=== PATIENT | female | born 1940 | race Caucasian/White ===

== ENCOUNTER → 2018-07-19 10:15 | Outpatient (CLI) | payer MEDICARE, SELFPAY ==
[2018-01-30 13:29] VITALS: BMI 32.4
--- NOTE | 2018-07-19 10:20 | BI_ITS ---
MAMMOGRAPHY - BILATERAL SCREENING REASON FOR EXAM: Female, 78 years old. Routine annual screening examination. PERTINENT HISTORY: Personal history of breast cancer. Prior left lumpectomy with radiation and chemotherapy. Prior left stereotactic breast biopsy. Grandmother with breast cancer. TECHNIQUE: Digital bilateral breast annel (3D mammographic acquisition) in the CC and MLO projections. 2-D mediolateral oblique (MLO) and craniocaudad (CC) views of both breasts were obtained. CAD: Full Field Digital Mammography with Computer Added Detection was performed. COMPARISON: Comparison is made with prior study dated July 18, 2017 and July 16, 2016. FINDINGS: Breast Composition: The breasts are almost entirely fatty. There are no dominant masses or suspicious calcifications. Stable postoperative changes in the deep slightly lateral aspect a tissue clip marker is once again seen in the superior retroareolar region of the left breast. No other significant abnormalities are identified. There has been no significant change since the prior study. BI/SCREENING MAMM (CAD), BILAT IMPRESSION: Stable bilateral screening mammogram. Yearly follow-up mammogram recommended. (A) ASSESSMENT CATEGORY: BIRADS Category 2: Benign. A letter regarding these results will be sent to the patient by the facility within 30 days. Approximately 10% of breast cancers are not detected by mammography. A normal mammogram should not delay biopsy of a clinically suspicious abnormality. [id number] Electronically Signed: Rosendo Meeks MD at 12:07 EST Tel [phone], Service support ,
--- NOTE | 2018-07-19 10:40 | BD_ITS ---
STUDY: DUAL ENERGY X-RAY ABSORPTIOMETRY / DXA REASON FOR EXAM: Female, 78 years old. The patient is postmenopausal. Loss of height. History of breast cancer. TECHNIQUE: Bone Mineral Density (BMD) measurements of lumbar spine and left forearm were obtained. The patient is status post bilateral total hip replacement. COMPARISON: Comparison is made with prior study dated December 23, 2015. FINDINGS: Lumbar Spine (L1-L4): g/cm2 (1.299) / T-score (1.0) / Z-score (2.8) Findings are suggestive of normal bone density with a low fracture risk. Left Forearm: g/cm2 (0.815) / T-score (-0.8) / Z-score (1.6) The T-Scores on the most recent prior examination were: Lumbar Spine (L1-L4): There has been no change of bone density since the previous examination. BD/Dexa Bone Density Study IMPRESSION: The patient is considered normal as outlined below according to World Jourdan Organization (WHO) criteria with a low fracture risk. There has been no change of bone density since the previous examination. Reference Information: The T-score is the number of standard deviations above or below the standard which is normal for young adults at their peak bone mineral density. The World Health Organization (WHO) interprets the T-scores as follows: Above -1 Normal bone density Between -1 and -2.5 Osteopenia Equal to / or below -2.5 Osteoporosis As a practical clinical guideline, osteopenia may be graded as follows: Mild -1 through -1.5 Moderate -1.6 through -2.0 Severe -2.1 through -2.4 The Z-score is the number of standard deviations above or below age-matched controls. A Z-score of less than -1.5 would be considered abnormal. References: 1. NIH Osteoporosis and Related Bone Diseases http://www.osteo.org 2. International Society for Clinical Densitometry http://www.iscd.org 3. National Osteoporosis Foundation http://www.nof.org Electronically Signed: Rosendo Meeks MD at 14:35 EST Tel [phone], Service support ,
--- OUTSIDE RECORDS SUMMARY | 2018-09-04 11:59 | XMS RPT_ITS ---
:1940 Author Organization OHIP Support Name Relationship Address Phone FREYA HENDERSON Unavailable [address] + [place] [address] R Unavailable Unavailable Unavailable SAEID SALAS Unavailable [address] + [place] [address] NORTH, FREYA Unavailable [address] + [place] [address] R Unavailable Unavailable Unavailable SAEID SALAS Unavailable [address] + [place] [address] NORTH, FREYA Unavailable [address] + [place] [address] R Unavailable Unavailable Unavailable SAEID SALAS Unavailable [address] + [place] [address] NORTH, FREYA Unavailable [address] + [place] [address] R Unavailable Unavailable Unavailable SAEID SALAS Unavailable [address] + [place] [address] NORTH, FREYA Unavailable [address] + [place] [address] R Unavailable Unavailable Unavailable SAEID SALAS Unavailable [address] + [place] [address] NORTH, FREYA Unavailable [address] + [place] [address] R Unavailable Unavailable Unavailable SAEID SALAS Unavailable [address] + [place] [address] NORTH, FREYA Unavailable [address] + [place] [address] R Unavailable Unavailable Unavailable SAEID SALAS Unavailable [address] + [place] [address] SAEID SALAS Unavailable [address] + [place] [address] SAEID SALAS Unavailable [address] + [place] [address] NORTH, FREYA Unavailable [address] + [place] [address] R Unavailable Unavailable Unavailable SAEID SALAS Unavailable [address] + [place] [address] NORTH, FREYA Unavailable [address] + [place] [address] R Unavailable Unavailable Unavailable SAEID SALAS Unavailable [address] + [place] [address] SAEID SALAS Unavailable [address] + [place] [address] SAEID SALAS Unavailable [address] + [place] [address] NORTH, FREYA Unavailable [address] + [place] [address] R Unavailable Unavailable Unavailable SAEID SALAS Unavailable [address] + [place] [address] NORTH, FREYA Unavailable [address] + [place] [address] R Unavailable Unavailable Unavailable SAEID SALAS Unavailable [address] + [place] [address] NORTH, FREYA Unavailable [address] + [place] [address] R Unavailable Unavailable Unavailable SAEID SALAS Unavailable [address] + [place] [address] Care Team Providers Name Role Phone OSIEL ALICIA DO Attending Unavailable OSIEL ALICIA DO Primary Care Unavailable OSIEL ALICIA DO Attending Unavailable OSIEL ALICIA DO Primary Care Unavailable Mara [place] Attending Unavailable Osiel Alicia Primary Care Unavailable Mara [place] Attending Unavailable Osiel Alicia Referring Unavailable Osiel Alicia Primary Care Unavailable Cholo Styles Unavailable Delym Fowler Attending Unavailable Padmini Mara Referring Unavailable Delmy Fowler Attending Unavailable Malcolm, Delmy Referring Unavailable Osiel Alicia Primary Care Unavailable Roboth[place], Delmy Attending Unavailable [place], Osiel Referring Unavailable [place], Delmy Attending Unavailable [place], Delmy Referring Unavailable Ravin, Osiel Primary Care Unavailable Prah, Cholo Attending Unavailable Ravin, Osiel Primary Care Unavailable [place], Osiel Referring Unavailable Robotham, Delmy Attending Unavailable [place]am, Delmy Referring Unavailable Ravin, Osiel Primary Care Unavailable [place], Delmy Attending Unavailable [place], Delmy Referring Unavailable [place], Osiel Primary Care Unavailable [place], Delmy Consulting Unavailable Prah, Cholo Attending Unavailable Prah, Cholo Referring Unavailable [place], Osiel Primary Care Unavailable Prah, Cholo Consulting Unavailable Padmini, Mara Attending Unavailable Ravin, Osiel Referring Unavailable [place], Osiel Primary Care Unavailable Prah, Cholo Consulting Unavailable Ney, Barby Attending Unavailable [place], Osiel Primary Care Unavailable PROBLEMS PROBLEMS DATE TYPE CONDITION / CODE ATTENDING STATUS SOURCE 08/10/2018 Unknown R22.42 - Localized [place]am, Active [place] swelling, mass and [facility] lump, left lower Hospital limb / Repository R22.42(ICD-10) 07/25/2018 Unknown C50.519 - Malignant Padmini, Active [place] neoplasm of [facility] lower-[facility] Hospital of unspecified Repository female breast / C50.519(ICD-10) 07/25/2018 Unknown C50.919 - Malignant Padmini, Active [place] neoplasm of [facility] unspecified site of Hospital unspecified female Repository breast / C50.919(ICD-10) 07/25/2018 Unknown Z85.3 - Personal Padmini, Active [place] history of malignant [facility] neoplasm of breast / Hospital Z85.3(ICD-10) Repository 07/19/2018 Unknown Z79.811 - manager terminal Padmini, Active [place] (current) use of [facility] aromatase inhibitors Hospital / Z79.811(ICD-10) Repository 07/19/2018 Unknown M81.0 - Age-related Padmini, Active [place] osteoporosis without [facility] current pathological Hospital fracture / Repository M81.0(ICD-10) 07/19/2018 Unknown Z12.31 - Encounter Padmini, Active [place] for screening [facility] mammogram for Hospital malignant neoplasm Repository of breast / Z12.31(ICD-10) 07/06/2018 Admitting Mixed hyperlipidemia RAVIN DO, Active [facility] Diagnosis / E78.2(ICD-10) OSIEL D [facility] Repository 07/06/2018 Admitting Nonscarring hair RAVIN BUTTERFIELD, Active [facility] Diagnosis loss, unspecified / OSIEL D [facility] L65.9(ICD-10) Repository 01/30/2018 Unknown Z13.820 - Encounter Padmini, Active [place] for screening for [facility] osteoporosis / Hospital Z13.820(ICD-10) Repository 01/30/2018 Unknown Z98.890 - Other Padmini, Active [place] specified [facility] post[facility]cedural [facility] states / Repository Z98.890(ICD-10) 01/30/2018 Unknown Z90.12 - Acquired Padmini, Active [place] absence of left [facility] breast and nipple / Hospital Z90.12(ICD-10) Repository 01/30/2018 Unknown Z17.0 - Estrogen Padmini, Active [place] receptor positive [facility] status [ER+] / Hospital Z17.0(ICD-10) Repository 01/03/2018 Admitting Essential (primary) RAVIN BUTTERFIELD, [facility] Diagnosis hypertension / OSIEL D [facility] I10(ICD-10) Repository PROCEDURES PROCEDURES No Procedure Records FoundRESULTS RESULTS SURGERY VISIT REPORT Observed: 08/22/2018 Status: F Source: [place] 1:47 PM [facility] [address] [place] [address] [address] [place] [address] OFFICE VISIT Date of Service: 08/22/18 MR#: [id number] Acct: [id number] Name: JOSUENANCIE A Rep #: [id number] : 1940 Provider: Delmy Fowler MD Age/Sex: 78/F Location: [facility] Status: Signed Intake Vital Signs08/22/18 Body Mass Index (BMI) 32.5 Intake Visit Reasons: Excision Cyst L Thigh 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 Accompanied by: Is patient in pain?: No Allergies naproxen Allergy (Severe, Verified 08/22/18 13:09) Hives Medications Acetaminophen [Tylenol] 500 mg PO DAILY PRN PRN 11/25/14 [History Confirmed 08/22/18] Bisoprolol Fumarate [Zebeta (Beta Selene)] 5 mg PO DAILY 11/25/14 [History Confirmed 08/22/18] Cholecalciferol (VIT D3) [Vitamin D3] 2,000 unit PO DAILY 11/25/14 [History Confirmed 08/22/18] Pyridoxine HCl [Vitamin B-6] 100 mg PO DAILY 03/12/15 [History Confirmed 08/22/18] Simvastatin [Zocor] 20 mg PO DAILY 03/24/15 [History Confirmed 08/22/18] Calcium Carbonate/Vitamin D3 [Calcium 600-Vit D3 200 Tablet] 1 ea PO DAILY 11/03/16 [History Confirmed 08/22/18] Tolterodine Tartrate [Detrol] 2 mg PO BID 11/03/16 [History Confirmed 08/22/18] Losartan/Hydrochlorothiazide [Hyzaar 100-12.5 Tablet] 1 tab PO DAILY 08/30/17 [History Confirmed 08/22/18] Anastrozole [Arimidex] 1 mg PO DAILY 90 Days #90 tab 01/30/18 [Rx Confirmed 08/22/18] PFSH Medical History BILATERAL LASER EYE SURGERY (Acute) Basal cell carcinoma (Acute) Cataract (lens) fragments in eye following cataract surgery, bilateral (Acute) Hearing deficit (Acute) Kidney disease (Acute) colonoscopy (Acute) Surgical History History of dilation and curettage (Acute) History of hip replacement (Acute) History of knee replacement (Acute) History of lumpectomy of left breast (Acute) History of tympanoplasty of left ear (Acute) Hx of breast biopsy (Acute) Family History Father Heart disease Mother Alzheimer disease Social History Smoking Status: Never smoker HPI HPI HPI: NANCIE SALAS, is a 78 F who presents to the office today for excision of left upper thigh subcutaneous mass Exam Const General: cooperative, comfortable, no acute distress Skin Other: Left upper thigh some cutaneous mass about 1.5 cm x 1.5 cm, slightly firm, no signs of infection. Office Procedures Excision of skin Provider Documentation Provider Documentation: Timeout was completed and correct patient, procedure, site, positioning, special, prior to beginning procedure. Patient was placed supine on the procedure table. The upper left thigh was prepped and draped in usual sterile fashion. 1% lidocaine with epinephrine was used for local anesthesia total of 4 cc. 15 blade scalpel was used to make an elliptical incision around the skin lesion. This was deepened into the subcutaneous tissue. The lesion was noted to be epidermal inclusion cyst. The cyst measured 1.7 cm x 1.5 cm x 1 cm. Hemostasis was assured with pressure. The wound was irrigated with saline. The wound was closed with horizontal mattress suture of 3-0 nylon and 2 interrupted sutures. An OpSite was placed over top. Patient tolerated procedure well and left the office in stable condition. Alert Senior Security Engineer Alert Billing: Yes T/A/L 81042 1.1-2.0cm Procedure Time Out Time Out Informed consent given: Yes Consent signed: Yes Time out checklist: patient, procedure, site marked/identified, positioning of patient, supplies available, allergies confirmed, team agrees on procedure Time out staff in room: Yes Time out verified: Yes Time out date: 08/22/18 Time out time: 13:05 Assessment AND Plan Problems 1. Epidermal inclusion cyst L72.0 Plan Patient's epidermal inclusion cyst was successfully removed in office. Patient tolerated procedure well. Follow-up in about 10 days for suture removal. Patient no further questions at this time. Delmy Fowler M.D. Pager: [phone] [facility] [address] [place] [address], [address] [place] [id number] Office: [phone] Plan Detail Follow Up 10 Days Coding Level of Care Code Attention Senior Security Engineer Diagnoses Epidermal inclusion cyst L72.0 Additional Codes T/A/L - Benign T/A/L: 58211 1.1-2.0cm (71584) 08/22/18 1347 <Electronically signed by Delmy Fowler MD> Date Delmy Fowler MD Cosigner Signature: Date (if applicable) CC: [facility] AUTO CLAIMS ADJUSTER-C Padmini MASS (DEFINE AREA) Observed: 08/22/2018 Status: F Source: [place] 1:15 PM [facility] REPOSITORY Patient: NANCIE SALAS : 1940 (78/F) Acct Num: [id number] Phys: Malcolm RIOJAS,Delmy Unit Num: [id number] Loc: [facility] Specimen: [id number] Received: 08/22/181638 Spec Type: Mass TISSUES 1 TISSUES: Thigh, NOS GROSS DESCRIPTION Received in fixative is one container labeled with the patient's name and designated left thigh mass. The specimen consists of an irregular piece of skin with underlying tissue that appears to consist of ruptured cyst. Also present in the container are multiple pieces of adame soft tissue measuring in aggregate 2.5 x 1 x 0.2 cm. The entire specimen is submitted in one cassette. / SJ:valeria 08/23/18 TC:5 CPT: 71351 HEADER OPERATION: Excision of left thigh mass PRE-OP DIAGNOSIS: Left thigh mass TISSUE SUBMITTED: Excision of left thigh mass MICROSCOPIC DESCRIPTION Slides are reviewed. MICROSCOPIC DIAGNOSIS Left thigh mass, excisional biopsy: Consistent with ruptured epidermal inclusion cyst with associated chronic inflammation and foreign body giant cell reaction. SJ:valeria 08/24/18 Signed Sharad Deleon MD 08/24/18 <signature on file> Performed By: #### PMASS #### [facility] [address] [place], [place], [address] SURGERY VISIT REPORT Observed: 08/16/2018 Status: F Source: [place] 12:49 PM [facility] REPOSITORY [facility] [place] [facility] 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 Is patient in pain?: No Allergies naproxen Allergy (Severe, Verified 08/10/18 13:00) Hives Medications Acetaminophen [Tylenol] 500 mg PO DAILY PRN PRN 11/25/14 [History Confirmed 08/10/18] Bisoprolol Fumarate [Zebeta (Beta Selene)] 5 mg PO DAILY 11/25/14 [History Confirmed 08/10/18] Cholecalciferol (VIT D3) [Vitamin D3] 2,000 unit PO DAILY 11/25/14 [History Confirmed 08/10/18] Pyridoxine HCl [Vitamin B-6] 100 mg PO DAILY 03/12/15 [History Confirmed 08/10/18] Simvastatin [Zocor] 20 mg PO DAILY 03/24/15 [History Confirmed 08/10/18] Calcium Carbonate/Vitamin D3 [Calcium 600-Vit D3 200 Tablet] 1 ea PO DAILY 11/03/16 [History Confirmed 08/10/18] Tolterodine Tartrate [Detrol] 2 mg PO BID 11/03/16 [History Confirmed 08/10/18] Losartan/Hydrochlorothiazide [Hyzaar 100-12.5 Tablet] 1 tab PO DAILY 08/30/17 [History Confirmed 08/10/18] Anastrozole [Arimidex] 1 mg PO DAILY 90 Days #90 tab 01/30/18 [Rx Confirmed 08/10/18] [facility] Medical History BILATERAL LASER EYE SURGERY (Acute) Basal cell carcinoma (Acute) Cataract (lens) fragments in eye following cataract surgery, bilateral (Acute) Hearing deficit (Acute) Kidney disease (Acute) colonoscopy (Acute) Surgical History History of dilation and curettage (Acute) History of hip replacement (Acute) History of knee replacement (Acute) History of lumpectomy of left breast (Acute) History of tympanoplasty of left ear (Acute) Hx of breast biopsy (Acute) Family History Father Heart disease Mother Alzheimer disease Social History Smoking Status: Never smoker HPI HPI HPI: NANCIE SALAS, is a 78 F who presents to the office today for skin lesion on left upper thigh. Patient states she had she is noticed this since about May 08 she states is been the same size denies any changes denies any pain. States it is about pea-sized. She would prefer to just watch it if nothing needs to be done ROS General General: Yes weight change (Intentional weight) and breast cancer; no fatigue Skin Skin: No rash or changing moles Exam Const General: cooperative, comfortable, no acute distress Skin Other: Left upper thigh 2 cm x 1.5 cm indurated area, bedside ultrasound does show this is some kind of lesion with good borders and may be some blood flow at the periphery, nontender to palpation Assessment AND Plan Problems 1. Neoplasm of uncertain behavior of skin of lower extremity D48.5 Plan We will check a formal ultrasound to see if we can better characterize what this lesion is. If we are able to do so and it looks benign okay to just continue to watch if we are unable to we will discuss with patient possible excision. Patient is agreeable with plan Delmy Fowler M.D. Pager: [phone] [facility] [address] [place] [address], [address] [place] [address] Office: [phone] Plan Detail Follow Up We will schedule ultrasound of left upper thigh Coding Level of Care Code Off vis,est,level 3 Diagnoses Neoplasm of uncertain behavior of skin of lower extremity D48.5 08/16/18 1249 <Electronically signed by Delmy Fowler MD> Date Delmy Fowler MD Cosigner Signature: Date (if applicable) CC: Mara [place]; Osiel Alicia DO EXT NON VASC Observed: 08/14/2018 Status: F Source: [place] LIMITED/SOFT TISS 1:58 PM [facility] Services [address] [place] [address] Ext Non Vasc Limited/Soft Tiss MR#: [id number] Acct: [id number] Name: NANCIE SALAS Rep #: [id number] : 1940 F 78 From: Bello Llanes MD PCP: [place] Alicia DO Status: REG CLI Study: Ext Non Vasc Limited/Soft Tiss Date of Exam: 08/14/18 Exam# [id number] Ordering Dr: Delmy Fowler MD STUDY: SUPERFICIAL ULTRASOUND - LEFT GROIN/UPPER THIGH REASON FOR EXAM: Female, 78 years old. Palpable lump. TECHNIQUE: A superficial ultrasound was performed with real- time and static sanches-scale imaging. COMPARISON: None. FINDINGS: Well-defined 1.4 x 1.6 x 0.9 cm hypoechoic structure is seen in the subcutaneous tissues at the area of the palpable lump. This shows minor vascularity along its periphery. US/Ext Non Vasc Limited/Soft Tiss IMPRESSION: 1.6 cm hypoechoic solid lesion in the subcutaneous tissues of the left groin/upper thigh correlated with palpable area, possibly a lymph node. Electronically Signed: Ruy Llanes MD at 15:09 EST , Service support , CC: Osiel Alicia DO; Delmy Fowler MD Residential Appliance Repair Technician: Signed ONCOLOGY VISIT REPORT Observed: 07/25/2018 Status: F Source: [place] 11:29 AM [facility] [place] [facility] [address] [place] [address] OFFICE VISIT Date of Service: 07/25/18 0956 MR#: [id number] Acct: [id number] Name: NANCIE SALAS Rep #: [id number] : 1940 From: Mara LÓPEZ Age/Sex: 78/F Location: [facility] Status: Signed Subjective - Date of Service Date of Service:: 07/25/18 - Chief Complaint F/u for left Breast cancer. - History of Present Illness 77y.o.woman had a screening mammogram in July of 2014 which revealed a mass in the left breast. At that time, it was difficult to biopsy. Repeat mammogram on 11/04/2014 demonstrated 2 suspicious nodular densities at the 12:00 and the 4:00 positions. Both of those areas were biopsied. Pathology of the 12:00 nodule returned as fibroadenoma with cluster of microcalcifications. The pathology of the tissue obtained at the 4:00 position returned positive for invasive lobular carcinoma. She underwent left breast lumpectomy on 11/27/[address] López, which returned as grade 2 invasive lobular carcinoma. The tumor measured 1.5 x 1.2 x 0.8 cm. Two out of two sentinel lymph nodes were negative for metastatic disease. Margins were uninvolved. No DCIS was present. Biology of the disease proved ER positive (95%) and AR positive (95%). HER2 was non-amplified by FISH. Oncotype DX score was 23, which placed her in the intermediate risk category. Stage IA(pT1c pN0 M0). She completed 4 cycles of Taxotere/Cytoxan from 01/08/2015 to 03/12/2015. She received 35/35 fractions of radiation therapy to the left breast from 04/17/2015 through 06/05/2015 under the care of Dr. Cedillo. PET/CT scan was obtained 04/15/2015 to assess a right lung nodule. Exam was negative for metastatic disease although demonstrated a barely-perceptible uptake in the right upper pulmonary parenchyma measuring 1.4 cm, SUV 0.67. She began anastrozole 1 mg on 06/24/2015. Mammogram on 07/14/2015 was BI-RADS category 0, as it identified a 6.5 cm x 2.9 cm density in the lateral aspect of the left breast. Follow-up ultrasound showed a 4.9 cm x 5.3 cm x 2.8 cm fluid collection suggestive of postoperative seroma. Lung nodule has been stable for more than 2 yrs so no need for follow up CT. She remains on Anastrozole. - Interval History The patient is presenting to clinic accompanied by spouse for routine 6 month follow up and to the review the results of screening mammogram and bone density exam completed 07/19/2018. Patient called into clinic with complaints of cough approximately 1 week ago and requested repeat CT chest. Declined offer of acute visit at that time. Today she states she experienced sinus drainage and sore throat accompanied by cough x 2 weeks, took 4 days of otc mucinex completed 07/21/18. Cough and congestion now resolved. Patient reports good tolerance as well as good adherence to anastrozole and recommended calcium and vitamin D supplementation. Performing breast self exams monthly denies any palpable masses, skin abnormality such as dimpling and nipple discharge or retraction. Further denies headaches, chest pain, shortness of breath, palpitations, changes in her bowel habits, abdominal pain, swelling or pain of her extremities increased from baseline. 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 TYMPANOPLSTY Family History Paternal Past Medical History: Heart disease Maternal Past Medical History: Alzheimer's disease Social History Smoking Status Never smoker Review of Systems Constitutional:: Denies: Fever, Sweats, Weight loss, Appetite change, Chills Cardiovascular:: Denies: Chest pain, Palpitations, Dyspnea on exertion, Orthopnea, PND, Shortness of breath Respiratory: Denies: Cough - Resolved subsequent to [id number] Mucinex, Hemoptysis, Shortness of Breath, Wheezing Gastrointestinal:: Denies: Abdominal pain, Nausea, Vomiting, Diarrhea, Constipation, Hematochezia Genitourinary: Denies: Dysuria, Hematuria, 15, Flank pain Musculoskeletal:: Denies: Back pain, Myalgia, Arthralgia Skin: Denies: Rash, Skin Changes, Wounds Neurological:: Denies: Headache, Dizziness, Visual changes, Tinnitus, Hearing loss Psychiatric: Denies: Anxiety, Depression, Homicidal Ideations, Suicidal Ideations Vital Signs Height 5 ft 6 in Weight: 202 lb Weight in Pounds 202.0 lbs Pulse Ox 95 - Physical Exam General: Alert, Oriented x3, No apparent distress HEENT: Atraumatic, Normocephalic Oropharynx:: Negative for: Dry mucosa, Ulcerated lesions Neck:: Supple, Trachea midline. Negative for: JVD, bilateral Cardiac:: Regular rate, Regular rhythm, Normal S1, Normal S2. Negative for: Murmur Lungs: Clear to auscultation, Excusion symmetrical. Negative for: Rhonchi, Wheezes Abdomen:: Bowel sounds x 4, Soft, Non-tender, Non-distended. Negative for: Hepatosplenomegaly Extremities:: Edema - Bilateral lower extremity nonpitting right equal to left. Negative for: Cyanosis Neurological: Neuro grossly intact Skin:: - - Small, soft approximately 1 cm mass left upper thigh medially, slightly erythematous. Nontender. surrounding integument is intact but dry without edema or erythema. Negative for: Lesions, Rash, Petechiae, Ecchymosis Psychiatric:: Appropriate affect, Euthymic Lymphatics:: Negative for: Cervical lymphadenopathy, Supraclavicular lymphadenopathy, Axillary lymphadenopathy, Inguinal lymphadenopathy Breast:: - - Right breast pendulous without palpable masses, skin abnormalities, nipple discharge/retraction Left breast shows well healed scar in the lower outer quad and axilla, without palpable masses, skin abnormalities, nipple discharge/retraction. No axillary adenopathy bilat Laboratory Data: Laboratory Tests WBC 5.7 (4.4-11.0) K/mm3 RBC 4.17 L (4.2-5.4) M/mm3 Hgb 12.9 (12.0-15.0) g/dl Diagnostic Data: 07/19/2018 bilateral screening mammogram BI-RADS Category 2 07/19/2018 DEXA scan shows normal bone density with low fracture risk Assessment and Plan 1. History of Left Breast cancer, lobular type, stage IA(pT1c pN0 M0)- Reports good tolerance and good adherence to adjuvant Anastrozole. Clinical breast examination unchanged. Bilateral screening mammogram obtained 07/19/2018 reviewed BI-RADS Category 2. These results were reviewed with patient. DEXA scan obtained 07/19/2018 reviewed shows normal bone density with low fracture risk. She is not endorsing any s/sx concerning for recurrence at this time. Advised to continue AI, calcium/vitamin D supplement BID and monthly BSE, promptly report any changes. 2. Left upper thigh mass-patient reports new times 2 months, nontender and unchanging. No inguinal lymphadenopathy on exam. Referral to general surgery. 3. Cough- Accompanied by sore throat and sinus drainage, in the absence of SOB, hemoptysis. Resolved after 4 days of otc Mucinex. Patient was concerned at first given h/o lung nodule but is no longer. Likely a result of viral URI. Recommended she contact our office if cough returns. RTC 6 months with CBC, CMP prior, sooner if issues arise. Mara Washington, MSN, PCI SECURITY CONSULTANT, AOCNP Medications: Prescriptions This Visit Medication Instructions Recorded Calcium Carbonate/Vitamin D3 1 each PO DAILY 11/03/16 Primary Care Provider: Osiel Alicia Referring Provider: - Problem List (1) History of left breast cancer Status: Chronic (2) Aromatase inhibitor use Status: Acute (3) Mass of left lower extremity Status: Acute 07/25/18 1129 <Electronically signed by Mara Washington NP-C> Date Mara COOPERC Cosigner Signature: Date (if applicable) CC: CBC W/DIFF, AUTOMATED Collected: 07/25/2018 Status: F Source: [facility] 9:03 AM [facility] REPOSITORY Order Comment: Reason for Laboratory Test . TYPE CODE TESTS RESULT OUT OF RANGE REFERENCE UNITS LAB L100.1000 4.4-11.0 K/mm3 Normal WBC 5.7 LAB L100.1200 4.2-5.4 M/mm3 Low RBC 4.17 LAB L100.1300 12.0-15.0 g/dl Normal HGB 12.9 LAB L100.1400 37-47 % Normal HCT 39.1 LAB L100.1500 81-99 fL Normal MCV 93.8 LAB L100.1600 27.0-32.0 pg Normal MCH 30.9 LAB L100.1700 32-36 g/gl Normal MCHC 33.0 LAB L100.1810 11.6-14.6 % Normal RDW CV 12.3 LAB L100.1820 35.1-43.9 fl Normal RDW SD 41.2 LAB L100.1900 150-450 K/mm3 Normal PLT 186 LAB L100.2000 6.2-12.0 fl Normal MPV 10.4 LAB L100.2100 47-70 % Normal NEUT% 58.9 LAB L100.2200 19-41 % Normal LY% 26.0 LAB L100.2300 0-10 % Normal MONO% 9.6 LAB L100.2400 0-5 % Normal EO% 4.6 LAB L100.2500 0-1 % Normal BASO% 0.7 LAB L100.2550 0.0-0.9 % Normal IM GRAN % 0.200 Result Comment: IG% - Immature Granulocytes (promyelocytes, myelocytes and metamyelocytes) > 1% indicates that a LEFT SHIFT is Present. LAB L100.2620 2.0-7.7 X10 3/uL Normal Absolute Neut 3.4 LAB L100.2720 0.83-4.51 X10 3/ul Normal Absolute Lymph 1.48 Performed By: #### L100.0100 #### [facility] [address] [place], [place], [address] COMPREHENSIVE METABOLIC Collected: 07/25/2018 Status: F Source: [facility] 9:03 AM [facility]POS[facility] Order Comment: Reason for Laboratory Test . TYPE CODE TESTS RESULT OUT OF RANGE REFERENCE UNITS LAB L501.0100 74-106 mg/dL Normal GLU 104 Result Comment: Fasting Glucose result from 100 to 125 mg/dL suggests IMPAIRED HOMEOSTASIS per A.D.A. criteria. Please note revised GLUCOSE reference range effective 2017. LAB L501.1000 7-18 mg/dL High BUN 24 LAB L501.1100 0.55-1.02 mg/dL High CREAT,SERUM 1.06 Result Comment: The validity of the calculated GFR AND GFRAA in patients over 70 years has not been determined. Clinical correlation is essential. LAB L501.1110 >60 mL/min Low EST GFR 54 Result Comment: Non- GFR Calc LAB L501.1115 >60 mL/min Normal EST GFR - AA 65 Result Comment: GFR Calc LAB L501.1255 ml/min Normal Estimated CRCL 42.27 LAB L501.1300 10-20 RATIO High BUN/CRE 22.6 LAB L501.1500 6.4-8. g/dL Normal 2 T PROT 7.2 LAB L501.1800 3.2-5. g/dL Normal 0 ALB 4.0 LAB L501.1950 2.2-4. g/dL Normal 2 GLOB 3.2 LAB L501.2000 0.9-2. RATIO Normal 4 A/G 1.2 LAB L501.2200 8.5-10 mg/dL Normal .1 CA 9.2 LAB L501.4100 15-37 U/L Normal AST 17 LAB L501.4305 45-117 U/L Normal ALK P 51 LAB L501.4405 13-56 U/L Normal ALT 22 LAB L501.4600 0.20-1 mg/dL Normal .00 T BILI 1.00 LAB L501.5300 136-14 mmol/L Low 5 NA 132 LAB L501.5600 3.5-5. mmol/L Normal 1 K 4.3 LAB L501.5900 98-107 mmol/L Normal CL 99 LAB L501.6100 21.0-3 mmol/L Normal 2.0 CO2 27.0 LAB L501.6200 5-15 Normal GAP 6 Performed By: #### L500.4050 #### [facility] [address] [facility] [place], [address] SCREENING MAMM (CAD), Observed: 07/19/2018 Status: F Source: [place] 10:20 AM [facility] REPOSITORY [facility] Imaging Services [address] [place] [address] SCREENING MAMM (CAD), BILAT MR#: [id number] Acct: [id number] Name: NANCIE SALAS Rep #: [id number] : 1940 F 78 From: Rosendo Meeks MD PCP: Osiel Alicia DO Status: REG CLI Study: SCREENING MAMM (CAD), BILAT Date of Exam: 07/19/18 Exam# [id number] Ordering Dr: Mara Washington NP-[place] MAMMOGRAPHY - BILATERAL SCREENING REASON FOR EXAM: Female, 78 years old. Routine annual screening examination. PERTINENT HISTORY: Personal history of breast cancer. Prior left lumpectomy with radiation and chemotherapy. Prior left stereotactic breast biopsy. Grandmother with breast cancer. TECHNIQUE: Digital bilateral breast annel (3D mammographic acquisition) in the CC and MLO projections. 2-D mediolateral oblique (MLO) and craniocaudad (CC) views of both breasts were obtained. CAD: Full Field Digital Mammography with Computer Added Detection was performed. COMPARISON: Comparison is made with prior study dated July 18, 2017 and July 16, 2016. FINDINGS: Breast Composition: The breasts are almost entirely fatty. There are no dominant masses or suspicious calcifications. Stable postoperative changes in the deep slightly lateral aspect a tissue clip marker is once again seen in the superior retroareolar region of the left breast. No other significant abnormalities are identified. There has been no significant change since the prior study. BI/SCREENING MAMM (CAD), BILAT IMPRESSION: Stable bilateral screening mammogram. Yearly follow-up mammogram recommended. (A) ASSESSMENT CATEGORY: BIRADS Category 2: Benign. A letter regarding these results will be sent to the patient by the facility within 30 days. Approximately 10% of breast cancers are not detected by mammography. A normal mammogram should not delay biopsy of a clinically suspicious abnormality. [id number] Electronically Signed: Rosendo Meeks MD at 12:07 EST Tel [phone], Service support , CC: Osiel Washington NP Residential Appliance Repair Technician: Signed DEXA BONE DENSITY Observed: 07/19/2018 Status: F Source: [place] [facility] 10:20 AM [facility] REPOSITORY [facility] Imaging Services [address] [place] [address] Dexa Bone Density Study MR#: [id number] Acct: [id number] Name: NANCIE SALAS Rep #: [id number] : 1940 F 78 From: Rosendo Meeks MD PCP: Osiel Alicia DO Status: REG CLI Study: Dexa Bone Density Study Date of Exam: 07/19/18 Exam# [id number] Ordering Dr: Mara Washington AUTO CLAIMS ADJUSTER-C STUDY: DUAL ENERGY X-RAY ABSORPTIOMETRY / DXA REASON FOR EXAM: Female, 78 years old. The patient is postmenopausal. Loss of height. History of breast cancer. TECHNIQUE: Bone Mineral Density (BMD) measurements of lumbar spine and left forearm were obtained. The patient is status post bilateral total hip replacement. COMPARISON: Comparison is made with prior study dated December 23, 2015. FINDINGS: Lumbar Spine (L1-L4): g/cm2 (1.299) / T-score (1.0) / Z-score (2.8) Findings are suggestive of normal bone density with a low fracture risk. Left Forearm: g/cm2 (0.815) / T-score (-0.8) / Z-score (1.6) The T-Scores on the most recent prior examination were: Lumbar Spine (L1-L4): There has been no change of bone density since the previous examination. BD/Dexa Bone Density Study IMPRESSION: The patient is considered normal as outlined below according to World Jourdna Organization (WHO) criteria with a low fracture risk. There has been no change of bone density since the previous examination. Reference Information: The T-score is the number of standard deviations above or below the standard which is normal for young adults at their peak bone mineral density. The World Health Organization (WHO) interprets the T-scores as follows: Above -1 Normal bone density Between -1 and -2.5 Osteopenia Equal to / or below -2.5 Osteoporosis As a practical clinical guideline, osteopenia may be graded as follows: Mild -1 through -1.5 Moderate -1.6 through -2.0 Severe -2.1 through -2.4 The Z-score is the number of standard deviations above or below age-matched controls. A Z-score of less than -1.5 would be considered abnormal. References: 1. NIH Osteoporosis and Related Bone Diseases http://www.osteo.org 2. International Society for Clinical Densitometry http://www.iscd.org 3. National Osteoporosis Foundation http://www.nof.org Electronically Signed: Rosendo Meeks MD at 14:35 EST Tel [phone], Service support , CC: Osiel Washington NP Residential Appliance Repair Technician: Signed LIPID Collected: 07/06/2018 Status: F Source: [facility] 11:32 AM [facility] REPOSITORY TYPE CODE TESTS RESULT OUT OF REFERENCE UNITS RANGE LAB CHOL(LOINC 0-200 mg/dL ) Cholesterol 139 Result Comment: Cholesterol Reference Interval: Less than 200 Desirable 200-239 Borderline high risk 240 and above High risk LAB TRIG(LOINC) 0-150 mg/dL Triglycerides 106 Result Comment: Triglyceride Reference Interval: Less than 150 Normal 150-199 Borderline high risk 200-499 High risk 500 or higher Very high risk LAB HD(LOINC) 40-60 mg/dL HDL Low Cholesterol 32 LAB LDL(LOINC) 0-130 mg/dL LDL Cholesterol 86 Performed By: #### LIPID, TSH #### [place] [address] TSH Collected: 07/06/2018 Status: F Source: [facility] 11:32 AM [facility] REPOSITORY TYPE CODE TESTS RESULT OUT OF RANGE REFERENCE UNITS LAB TSH(LOINC) 0.36-3.74 mcIU/mL TSH 2.05 Performed By: #### LIPID, TSH #### [facility] [address] [place] [address] ONCOLOGY VISIT REPORT Observed: 01/30/2018 Status: F Source: [place] 2:36 PM [facility] REPOSITORY [facility] [place] [address] OFFICE VISIT Date of Service: 01/30/18 1336 MR#: [id number] Acct: [id number] Name: NANCIE SALAS Rep #: [id number] : 1940 From: Mara LÓPEZ Age/Sex: 78/F Location: OMD Status: Signed Subjective - Date of Service Date of Service:: 01/30/18 - Chief Complaint F/u for left Breast cancer. - History of Present Illness 77y.o.woman had a screening mammogram in July of 2014 which revealed a mass in the left breast. At that time, it was difficult to biopsy. Repeat mammogram on 11/04/2014 demonstrated 2 suspicious nodular densities at the 12:00 and the 4:00 positions. Both of those areas were biopsied. Pathology of the 12:00 nodule returned as fibroadenoma with cluster of microcalcifications. The pathology of the tissue obtained at the 4:00 position returned positive for invasive lobular carcinoma. She underwent left breast lumpectomy on 11/27/[address] López, which returned as grade 2 invasive lobular carcinoma. The tumor measured 1.5 x 1.2 x 0.8 cm. Two out of two sentinel lymph nodes were negative for metastatic disease. Margins were uninvolved. No DCIS was present. Biology of the disease proved ER positive (95%) and AR positive (95%). HER2 was non-amplified by FISH. Oncotype DX score was 23, which placed her in the intermediate risk category. Stage IA(pT1c pN0 M0). She completed 4 cycles of Taxotere/Cytoxan from 01/08/2015 to 03/12/2015. She received 35/35 fractions of radiation therapy to the left breast from 04/17/2015 through 06/05/2015 under the care of Dr. Cedillo. PET/CT scan was obtained 04/15/2015 to assess a right lung nodule. Exam was negative for metastatic disease although demonstrated a barely-perceptible uptake in the right upper pulmonary parenchyma measuring 1.4 cm, SUV 0.67. She began anastrozole 1 mg on 06/24/2015. Mammogram on 07/14/2015 was BI-RADS category 0, as it identified a 6.5 cm x 2.9 cm density in the lateral aspect of the left breast. Follow-up ultrasound showed a 4.9 cm x 5.3 cm x 2.8 cm fluid collection suggestive of postoperative seroma. Lung nodule has been stable for more than 2 yrs so no need for follow up CT. She remains on Anastrozole. - Interval History The patient is presenting to clinic accompanied by spouse for 6 month follow up. Denies any concerns r/t today's visit. In fact, she is pleased to report she has intentionally lost nearly 40 lb through a commitment to exercise and healthier, plant based diet. States tolerating AI well without complaints of hot flashes, vaginal dryness, fatigue and mood swings. Taking calcium and vitamin D BID as advised. Performs BSE monthly and denies any palpable masses, skin abnormalities and nipple/discharge retraction. Lumpectomy scar remains sensitive to touch. 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 Denies: Dysuria, Hematuria, Flank pain Musculoskeletal:: Denies: Back pain, Myalgia, Arthralgia Skin: Denies: Rash, Skin Changes, Wounds Neurological:: Denies: Headache, Dizziness, Visual changes, Tinnitus, Hearing loss Psychiatric: Denies: Anxiety, Depression, Homicidal Ideations, Suicidal Ideations Vital Signs Height 5 ft 6 in Weight: 201 lb Weight in Pounds 201.0 lbs Pulse Ox 95 - Physical Exam General: Alert, Oriented x3, No apparent distress HEENT: Atraumatic, Normocephalic Oropharynx:: Negative for: Dry mucosa, Ulcerated lesions Neck:: Supple, Trachea midline. Negative for: JVD, bilateral Cardiac:: Regular rate, Regular rhythm, Normal S1, Normal S2. Negative for: Murmur Lungs: Clear to auscultation, Excusion symmetrical. Negative for: Rhonchi, Wheezes Abdomen:: Bowel sounds x 4, Soft, Non-tender, Non-distended. Negative for: Hepatosplenomegaly Extremities:: Negative for: Cyanosis, Edema Neurological: Neuro grossly intact Skin:: Negative for: Lesions, Rash, Petechiae, Ecchymosis Psychiatric:: Appropriate affect, Euthymic Lymphatics:: Negative for: Cervical lymphadenopathy, Supraclavicular lymphadenopathy, Axillary lymphadenopathy Breast:: - - Right breast pendulous without palpable masses, skin abnormalities, nipple discharge/retraction Left breast shows well healed scar in the lower outer quad and axilla, without palpable masses, skin abnormalities, nipple discharge/retraction. No axillary adenopathy bilat Laboratory Data: Laboratory Tests WBC 7.1 (4.4-11.0) K/mm3 RBC 4.07 L (4.2-5.4) M/mm3 Hgb 12.7 (12.0-15.0) g/dl Assessment and Plan 1. History of Left Breast cancer, lobular type, stage IA(pT1c pN0 M0)- Reports good tolerance and good adherence to adjuvant Anastrozole. Rx refilled. Clinical breast examination unchanged. She is not endorsing any s/sx concerning for recurrence at this time. CBC reviewed and grossly WNL, CMP shows stable Cr. These results were shared with the patient. Due for Dexa scan. Per patient request, dexa to be complete with screening mammogram in July. Orders provided. Advised to continue AI, calcium/vitamin D supplement BID and monthly BSE, promptly report any changes. This visit incident to the treatment plan previously established by Dr. Stephani MELGOZA 6 months with CBC, CMP. Mara Washington, MSN, PCI SECURITY CONSULTANT, AOCNP Medications: Prescriptions This Visit Medication Instructions Recorded Calcium Carbonate/Vitamin D3 1 each PO DAILY 11/03/16 [Calcium 600-Vit D3 200 Tablet] Tolterodine Tartrate [Detrol] 2 mg PO BID 11/03/16 Primary Care Provider: Osiel Alicia Referring Provider: - Problem List (1) History of left breast cancer Status: Chronic (2) Aromatase inhibitor use Status: Acute 01/30/18 1436 <Electronically signed by Mara LPÓEZ> Date Mara COOPERC Cosigner Signature: Date (if applicable) CC: CBC W/DIFF, AUTOMATED Collected: 01/30/2018 Status: F Source: [facility] 1:04 PM [facility] REPOSIT[facility] Order Comment: Reason for Laboratory Test OV TYPE CODE TESTS RESULT OUT OF RANGE REFERENCE UNITS LAB L100.1000 4.4-11.0 K/mm3 Normal WBC 7.1 LAB L100.1200 4.2-5.4 M/mm3 Low RBC 4.07 LAB L100.1300 12.0-15.0 g/dl Normal HGB 12.7 LAB L100.1400 37-47 % Normal HCT 37.4 LAB L100.1500 81-99 fL Normal MCV 91.9 LAB L100.1600 27.0-32.0 pg Normal MCH 31.2 LAB L100.1700 32-36 g/gl Normal MCHC 34.0 LAB L100.1810 11.6-14.6 % Normal RDW CV 12.4 LAB L100.1820 35.1-43.9 fl Normal RDW SD 42.0 LAB L100.1900 150-450 K/mm3 Normal PLT 185 LAB L100.2000 6.2-12.0 fl Normal MPV 10.0 LAB L100.2100 47-70 % Normal NEUT% 62.4 LAB L100.2200 19-41 % Normal LY% 24.8 LAB L100.2300 0-10 % Normal MONO% 9.1 LAB L100.2400 0-5 % Normal EO% 3.1 LAB L100.2500 0-1 % Normal BASO% 0.6 LAB L100.2550 0.0-0.9 % Normal IM GRAN % 0.000 Result Comment: IG% - Immature Granulocytes (promyelocytes, myelocytes and metamyelocytes) > 1% indicates that a LEFT SHIFT is Present. LAB L100.2620 2.0-7.7 X10 3/uL Normal Absolute Neut 4.5 LAB L100.2720 0.83-4.51 X10 3/ul Normal Absolute Lymph 1.77 Performed By: #### L100.0100, L500.4050 #### [facility] [address] [place], [address] COMPREHENSIVE METABOLIC Collected: 01/30/2018 Status: F Source: [facility] 1:04 PM [facility] REPOSIT[facility] Order Comment: Reason for Laboratory Test OV TYPE CODE TESTS RESULT OUT OF RANGE REFERENCE UNITS LAB L501.0100 74-106 mg/dL High GLU 108 Result Comment: Fasting Glucose result from 100 to 125 mg/dL suggests IMPAIRED HOMEOSTASIS per A.D.A. criteria. Please note revised GLUCOSE reference range effective 2017. LAB L501.1000 7-18 mg/dL High BUN 24 LAB L501.1100 0.55-1.02 mg/dL High CREAT,SERUM 1.38 Result Comment: The validity of the calculated GFR AND GFRAA in patients over 70 years has not been determined. Clinical correlation is essential. LAB L501.1110 >60 mL/min Low EST GFR 40 Result Comment: Non- GFR Calc LAB L501.1115 >60 mL/min Low EST GFR - AA 48 Result Comment: GFR Calc LAB L501.1255 ml/min Normal Estimated CRCL 32.47 LAB L501.1300 10-20 RATIO Normal BUN/CRE 17.4 LAB L501.1500 6.4-8. g/dL Normal 2 T PROT 7.1 LAB L501.1800 3.2-5. g/dL Normal 0 ALB 3.8 LAB L501.1950 2.2-4. g/dL Normal 2 GLOB 3.3 LAB L501.2000 0.9-2. RATIO Normal 4 A/G 1.2 LAB L501.2200 8.5-10 mg/dL Normal .1 CA 9.4 LAB L501.4100 15-37 U/L Normal AST 20 LAB L501.4305 45-117 U/L Normal ALK P 45 LAB L501.4405 13-56 U/L Normal ALT 25 LAB L501.4600 0.20-1 mg/dL Normal .00 T BILI 0.90 LAB L501.5300 136-14 mmol/L Normal 5 NA 136 LAB L501.5600 3.5-5. mmol/L Normal 1 K 4.3 LAB L501.5900 98-107 mmol/L Normal CL 100 LAB L501.6100 21.0-3 mmol/L Normal 2.0 CO2 27.0 LAB L501.6200 5-15 Normal GAP 9 Performed By: #### L100.0100, L500.4050 #### [facility] [address] [place] [address]. [place], [address] BMP Collected: 01/03/2018 Status: F Source: [employer] 12:05 [facility] REPOSITORY TYPE CODE TESTS RESULT OUT OF REFERENCE UNITS RANGE LAB GLU(LOINC) 83-110 mg/dL Glucose Level 108 LAB NA(LOINC) 136-146 mEq/L Low Sodium Level 131 LAB K(LOINC) 3.5-5.1 mEq/L Potassium Level 4.9 LAB CL(LOINC) 98-107 mEq/L Low Chloride 96 LAB CO2(LOINC) 23-31 mEq/L CO2 25 LAB EBAL(LOINC mEq/L ) Electrolyte Balance 10.0 LAB BUN(LOINC) 7.0-18.0 mg/dL BUN High 21.7 LAB CRE(LOINC) 0.6-1.2 mg/dL Creatinine Lvl (s) 1.2 LAB BC(LOINC) 7-27 ratio BUN/Creatinine 18 Ratio LAB CA(LOINC) 8.4-10.2 mg/dL Calcium Lvl 10.2 Performed By: #### BMP, GFR #### [address] [address] .GFR Collected: 01/03/2018 Status: F Source: [employer] 12:05 [facility] REPOSITORY TYPE CODE TESTS RESULT OUT OF REFERENCE UNITS RANGE LAB GFRAA(LOINC ml/min/1.73 ) sqm GFR 53 [place] Result Comment: GFR Population mean for , Non- Americans Ages 20-29 = 116 mL/min/1.73 sq.m. Ages 30-39 = 107 mL/min/1.73 sq.m. Ages 40-49 = 99 mL/min/1.73 sq.m. Ages 50-59 = 93 mL/min/1.73 sq.m. Ages 60-69 = 85 mL/min/1.73 sq.m. Ages 70+ = 75 mL/min/1.73 sq.m. Chronic Kidney Disease: Less than 60 mL/min/1.73 square meters End Stage Renal Disease: Less than 15 mL/min/1.73 square meters LAB GFRNO(LOINC) ml/min/1.73sqm GFR Non- 43 Result Comment: GFR Population mean for , Non- Americans Ages 20-29 = 116 mL/min/1.73 sq.m. Ages 30-39 = 107 mL/min/1.73 sq.m. Ages 40-49 = 99 mL/min/1.73 sq.m. Ages 50-59 = 93 mL/min/1.73 sq.m. Ages 60-69 = 85 mL/min/1.73 sq.m. Ages 70+ = 75 mL/min/1.73 sq.m. Chronic Kidney Disease: Less than 60 mL/min/1.73 square meters End Stage Renal Disease: Less than 15 mL/min/1.73 square meters Performed By: #### BMP, GFR #### [place] [address] [address] OPERATIVE REPORT Observed: 08/31/2017 Status: F Source: [place] 10:36 AM [facility] REPOSITORY [facility] Medical Records Department [address] [place] [address] Operative Report 08/31/17 1032 MR#: [id number] Acct: [id number] Name: NANCIE SALAS Rep #: [id number] : 1940 77 From: Delmy Fowler MD PCP: Osiel Alicia DO Status: REG [facility] Y Location: [place] [address] Report of Operation Date of Procedure: 08/31/17 Pre-Operative Diagnosis: +cologuard test Post-Operative Diagnosis: Cecal, proximal ascending, transverse polyps; minimal diverticulosis of the sigmoid colon Surgery/Procedure Performed:: Colonoscopy with biopsy Type of Anesthesia:: MAC Anesthesiologist: Delgado Deras Specimen's removed: 1. Proximal ascending colon polyp 2. Cecal polyp 3. Transverse colon polyp Estimated Blood Loss (mL): Minimal Description of Procedure: Procedure: Colonoscopy After reviewing the risks benefits, the patient was deemed in satisfactory condition to undergo procedure. After obtaining informed consent, the scope was passed under direct visualization. Throughout the procedure, the patient's blood pressure pulse and position saturations were monitored continuously anesthesia. The colonoscope was introduced through the anus and advanced to the cecum, identified by the appendiceal orifice, IC valve and transillumination. The colonoscopy was performed without difficulty. The patient tolerated procedure well. Quality of bowel prep was good. Findings: The perianal and digital rectal exam were normal. Small polyps were seen behind folds in the proximal ascending colon, cecum and removed with cold forceps biopsies. Additional small polyp was removed with cold forceps biopsy in the transverse colon. There was minimal diverticulosis of the sigmoid colon. Otherwise the colon (entire examined portion) appeared normal. Retroflexed view of the distal rectum and anal verge was normal and showed no anal or rectal abnormalities Impression: 1. Cecal, proximal ascending colon, transverse colon polyps. Biopsied 2. Minimal diverticulosis of the sigmoid colon 3. The distal rectal and anal verge were normal on retroflexed view. Recommendations: Await biopsies Repeat colonoscopy in 5 years for screening purposes, depending on biopsies - Complications none 08/31/17 1036 <Electronically signed by Delmy Fowler MD> Date Delmy Fowler MD CC: Osiel Alicia DO; Delmy Fowler MD Signed COLON BIOPSY (CHOOSE Observed: 08/31/2017 Status: F Source: [place] SITE) 5:58 AM [facility] REPOSITORY Patient: NANCIE SALAS : 1940 (77/F) Acct Num: [id number] Phys: Delmy Fowler MD Unit Num: [id number] Loc: EN Specimen: [id number] Received: 08/31/17 - 1134 Spec Type: COLON BX TISSUES TISSUES: A. Ascending colon B. Cecum, NOS C. Transverse colon GROSS DESCRIPTION A - Received in fixative is one container labeled with the patient's name and designated proximal ascending colon polyp. The specimen consists of multiple irregular fragments of light adame soft tissue that in aggregate measure 0.4 x 0.4 x 0.1 cm. The specimen is totally submitted in one cassette. B - Received in fixative is one container labeled with the patient's name and designated cecal polyp. The specimen consists of multiple irregular fragments of light adame soft tissue that in aggregate measure 1 x 0.2 x 0.1 cm. The specimen is totally submitted in one cassette. C - Received in fixative is one container labeled with the patient's name and designated transverse colon polyp biopsy. The specimen consists of one irregular fragment of light adame soft tissue that measures 0.3 x 0.2 x 0.1 cm. The specimen is totally submitted in one cassette. / SJ:valeria 08/31/17 TC:5 CPT: 51687 x3 HEADER OPERATION: Colonoscopy PRE-OP DIAGNOSIS: Positive Cologuard test TISSUE SUBMITTED: A Proximal ascending colon polyp biopsy, B Cecal polyp biopsy, C Transverse colon polyp biopsy MICROSCOPIC DESCRIPTION Slides are reviewed. MICROSCOPIC DIAGNOSIS A. Proximal ascending colon polyp, biopsy: Fragments of tubular adenoma. B. Cecal polyp, biopsy: Tubular adenoma. Fragments of benign mucosal tissue. C. Transverse colon polyp, biopsy: Tubular adenoma. AM:valeria 09/01/17 Signed Fredis [facility] 09/01/17 <signature on file> Performed By: #### PCOLBX #### [facility] [place], [address] ALLERGIES ALLERGIES DATE TYPE / CODE NAME / CODE REACTION SEVERITY SOURCE 08/22/2018 Drug naproxen/F00 Hives SV [facility] Allergy/4160 [id number]([facility] 79014(SNOMED ) Repository CT) ENCOUNTERS ENCOUNTERS ADMIT/DISCHARGE ACCOUNT NUMBER ADMITTING ENCOUNTER LOCATION SOURCE CLASS 08/22/2018 [id number] Ambulatory [facility] ding:LABSPEC Repository 08/22/2018/08/22/19 [id number] Ambulatory BMSBuilding: [place] [facility] Repository 08/14/2018 [id number] Ambulatory [facility] ding:US Repository 08/10/2018/08/10/19 [id number] Ambulatory BMSBuilding: [place] [facility] Repository 07/25/2018 [id number] Ambulatory BMSBuilding: [place] BMS.[facility] Repository 07/25/2018 [id number] Ambulatory [facility] ding:OMD Repository 07/19/2018 [id number] Ambulatory [facility] ding:OPBD Repository 07/06/2018/07/10/20 [id number] Ambulatory BBuilding:DR T[place] [address] [place] [address] Repository 02/13/2018 [id number] Ambulatory [facility] ding:LAB.FUT Repository URE 01/30/2018 [id number] Ambulatory BMSBuilding: [place] BMS.[facility] Repository 01/03/2018/01/08/20 [id number] Ambulatory DARINEL [address] ding:[facility] Repository 09/07/2017 [id number] Ambulatory BMSBuilding: [place] BMS.[facility] Repository 08/31/2017/08/31/19 [id number] Ambulatory [address] ding:EN Repository 08/31/2017 [id number] Ambulatory BMSBuilding: [place] [facility] Repository PAYERS PAYERS ENCOUNTER GUARANTOR PAYER SUBSCRIBER SOURCE 08/22/2018 NANCIE A Primary NANCIE A [place] [id number] [place] Insurance:AUGUST ANDERSEN[facility] [id number] Hospital [address]26[address]Ltk: 330 HMOPolicy Number: Repository [phone] [id number] Date:5649-96-06Rk [address] [place] [address]MZ: 08/22/2018 Secondary NOT GIVENUNK [place] Insurance:SELF PAY [facility] Number: Effective Repository Date:2018-08-22 08/22/2018 NANCIE A Primary NANCIE A [place] [id number] [place] Insurance:AUGUST RAMEYDOB: [facility] [id number] Hospital [address]Xrm: (330) OPolicy Number: Repository [phone] () [id number] Date:1121-47-53Cl [address] [place] [address]UQ: 08/22/2018 Secondary NOT GIVENUNK [place] Insurance:SELF PAY [facility] Number: Effective Repository Date:2018-08-18 08/14/2018 SAEID B Primary NANCIE A [place] [id number] [place] Insurance:AUGUST RAMEYDOB: [facility] [id number] [id number]: [phone]) OPolicy Number: Repository [phone] () [id number] Date:8016-03-31Bt [place] [address] [place] [address]DF: 08/14/2018 Secondary NOT GIVENUNK [place] Insurance:SELF PAY [facility] Number: Effective Repository Date:2018-08-10 08/10/2018 SAEID B Primary NANCIE A [place] [id number] [place] Insurance:AUGUST RAMEYDOB: [facility] [id number] Hospital [address]Dcj: (641) OPolicy Number: Repository [phone] () [id number] Date:2307-68-09Pq [address] [place] [address]YE: 08/10/2018 Secondary NOT GIVENUNK [place] Insurance:SELF PAY [facility] Number: Effective Repository Date:2018-08-07 07/25/2018 SAEID B Primary NANCIE A [place] [id number] [place] Insurance:AUGUST RAMEYDOB: [facility] [id number] Hospital [address]Jfm: (216) [facility] Number: Repository [phone] () [id number] Date:9033-86-28Cg [address] [address]SK: 07/25/2018 Secondary NOT GIVENUNK [place] Insurance:SELF PAY [facility]: Effective Repository Date:2018-07-25 07/25/2018 SAEID B Primary NANCIE A [place] [id number] [place] Insurance:AUGUST RAMEYDOB: [facility] [id number] Hospital [address]Kdp: (216) [facility] Number: Repository [phone] () [id number] Date:1364-23-84Qc [address] [address]ZF: 07/25/2018 Secondary NOT GIVENUNK [place] Insurance:SELF PAY [facility] Number: Effective Repository Date:2016-10-27 07/19/2018 SAEID B Primary NANCIE A [place] [id number] [place] Insurance:[facility]USTFABIOLA HOSPITALEYDOB: [facility] [id number] Hospital [address]Qla: (216) [facility] Number: Repository [phone] () [id number] Date:1030-71-76Zi [address] [place] [address]JR: 07/19/2018 Secondary NOT GIVENUNK [place] Insurance:SELF PAY [facility] Number: Effective Repository Date:2018-01-30 07/06/2018 NANCIE A Primary NANCIE A [facility] RAMEYDOB: Insurance:PRIME TIME RAMEYDOB: Foundation [id number] HEALTH (HUGER)Policy [id number] [facility]ository [facility] Number: [address] [place] [address]Jre: [id number] [place] Date:2018-07-06Tel: [phone]) ()Tel: [phone] [phone] (WP) Name:CHRISTIE VEGA ()Tel: 000 [address]ANTOJozef [place] 000-0000 () [address]ZK: 02/13/2018 Saeid Harrison Primary NANCIE A [place] [id number] [place] Insurance:AUGUST RAMEYDOB: [facility] HEALTH PLAN [id number] Hospital [address]Giz: (216) [facility] Number: Repository [id number] () [id number] Date:3379-69-90Pn [address] [place] [address]YC: 02/13/2018 Secondary NOT GIVENUNK [place] Insurance:SELF PAY [facility] Number: Effective Repository Date:2018-02-13 01/30/2018 Saeid Harrison Primary NANCIE A [place] [id number] [place] Insurance:AUGUST RAMEYDOB: [facility] [id number] Hospital [address]Hum: (216) [facility] Number: Repository [phone] () [id number] Date:7163-60-55Qw [address] [place] [address]CA: 01/30/2018 Secondary NOT GIVENUNK [place] Insurance:SELF PAY [facility] Number: Effective Repository Date:2018-01-30 01/03/2018 NANCIE A Primary NANCIE A [facility] RAMEYDOB: Insurance:PRIME TIME RAMEYDOB: Foundation HEALTH (HUGER)Policy [id number] Repository [facility], Number: [address] [facility] [address]Wvi: [id number] [place] Date:2018-01-03Tel: [phone]) ()Tel: [phone] [phone] (WP) Name:[address] ()Tel: [phone], [place] [phone] (WP) [address]ZP: 09/07/2017 Saeid B Primary NANCIE A [place] [id number] [place] [facility]: [facility] [id number] [id number]: (216) HMOPolicy Number: Repository [phone] () [id number] Date:0697-40-39Me [address] [place] [address]ZB: 09/07/2017 Secondary NOT GIVENUNK [place] Insurance:SELF PAY [facility] Number: Effective Repository Date:2017-09-07 08/31/2017 Saeid B Primary NANCIE A [place] [id number] [place] Insurance:AUGUST RAMEYDOB: [facility] [id number] [place] [id number]: (216) HMOPolicy Number: Repository [phone] () [id number] Date:8310-92-82Ap [address] [place] [address]NY: 08/31/2017 Secondary NOT GIVENUNK [place] Insurance:SELF PAY [facility] Number: Effective Repository Date:2017-08-22 08/31/2017 Saeid B Primary NANCIE A [place] [id number] [place] Insurance:AUGUST RAMEYDOB: [facility] [id number] Hospital [address]Iid: (216) HMOPolicy Number: Repository [phone] () [id number] Date:5635-64-69Wx [address] [place] [address]LT: 08/31/2017 Secondary NOT GIVENUNK [place] Insurance:SELF PAY [facility] Number: Effective Repository Date:2017-08-31
== END ==
PROVIDERS: Family Provider Family Medicine; PCP Family Medicine; Visit Provider Nurse Practitioner Family
DX: Z12.31 Encounter for screening mammogram for malignant neoplasm of breast (principal); Z13.820 Encounter for screening for osteoporosis; M81.0 Age-related osteoporosis without current pathological fracture; Z79.811 Long term (current) use of aromatase inhibitors; Z85.3 Personal history of malignant neoplasm of breast; Z90.12 Acquired absence of left breast and nipple; Z98.890 Other specified postprocedural states
CPT/HCPCS: 77063; 77067; 77080

== ENCOUNTER → 2018-08-14 13:56 | Outpatient (CLI) | payer MEDICARE, SELFPAY ==
[2018-08-10 13:01] VITALS: BMI 32.5
--- NOTE | 2018-08-14 13:58 | US_ITS ---
STUDY: SUPERFICIAL ULTRASOUND - LEFT GROIN/UPPER THIGH REASON FOR EXAM: Female, 78 years old. Palpable lump. TECHNIQUE: A superficial ultrasound was performed with real-time and static sanches-scale imaging. COMPARISON: None. FINDINGS: Well-defined 1.4 x 1.6 x 0.9 cm hypoechoic structure is seen in the subcutaneous tissues at the area of the palpable lump. This shows minor vascularity along its periphery. US/Ext Non Vasc Limited/Soft Tiss IMPRESSION: 1.6 cm hypoechoic solid lesion in the subcutaneous tissues of the left groin/upper thigh correlated with palpable area, possibly a lymph node. Electronically Signed: Ruy Llanes MD at 15:09 EST , Service support ,
== END ==
PROVIDERS: Family Provider Family Medicine; PCP Family Medicine; Referring Provider Surgery; Visit Provider Surgery
DX: R22.42 Localized swelling, mass and lump, left lower limb (principal)
CPT/HCPCS: 76882

== ENCOUNTER → 2018-08-22 17:15 | Outpatient (CLI) | payer MEDICARE, SELFPAY ==
[2018-08-22 13:10] VITALS: BMI 32.5
--- NOTE | 2018-08-22 13:15 | MASS_PTH ---
PATIENT: NANCIE SALAS LOC: [facility] U#:[id number] AGE/SX: 85/F ROOM: RE08/22/[address]: Dr. Delmy Fowler MD : 1940 BED: DIS: SPEC #: [id number] RECD: 08/22/18 16:39 STATUS: VANIA REQ #: [id number] WEI: 08/22/18 13:[address]: Delmy Fowler DEPT: SURGICAL PATHOLOGY RECD BY: Stanislaw Burton ENTERED: 08/23/18 13:11 SP TYPE: Mass OTHR DR: Dr. Osiel Alicia DO Tissues: Thigh, NOS Procedures: Surgery Specimen Level III Comments: @ Originally on account #[id number] Req #[id number] HEADER OPERATION: Excision of left thigh mass PRE-OP DIAGNOSIS: Left thigh mass TISSUE SUBMITTED: Excision of left thigh mass MICROSCOPIC DIAGNOSIS Left thigh mass, excisional biopsy: Consistent with ruptured epidermal inclusion cyst with associated chronic inflammation and foreign body giant cell reaction. MICHAEL:valeria 08/24/18 MICROSCOPIC DESCRIPTION Slides are reviewed. GROSS DESCRIPTION Received in fixative is one container labeled with the patient's name and designated left thigh mass. The specimen consists of an irregular piece of skin with underlying tissue that appears to consist of ruptured cyst. Also present in the container are multiple pieces of adame soft tissue measuring in aggregate 2.5 x 1 x 0.2 cm. The entire specimen is submitted in one cassette. / MICHAEL:valeria 08/23/18 TC:5 CPT: 17160
== END ==
PROVIDERS: Family Provider Family Medicine; PCP Family Medicine; Referring Provider Surgery; Visit Provider Surgery
DX: R22.42 Localized swelling, mass and lump, left lower limb (principal)
CPT/HCPCS: 88304; 88305

== ENCOUNTER → 2019-07-20 10:14 | Outpatient (CLI) | payer MEDICARE, SELFPAY ==
[2019-01-23 14:03] VITALS: BMI 32.8
--- NOTE | 2019-07-20 10:15 | BI_ITS ---
MAMMOGRAPHY - BILATERAL SCREENING REASON FOR EXAM: Female, 79 years old. Routine annual screening examination. PERTINENT HISTORY: Personal history of breast cancer. Prior left lumpectomy with chemotherapy and radiation. Grandmother with breast cancer. Prior left stereotactic breast biopsy. TECHNIQUE: Digital bilateral breast moshe (3D mammographic acquisition) in the CC and MLO projections. 2-D mediolateral oblique (MLO) and craniocaudad (CC) views of both breasts were obtained. CAD: Full Field Digital Mammography with Computer Added Detection was performed. COMPARISON: Comparison is made with prior study dated July 19, 2018 and July 18, 2017. FINDINGS: Breast Composition: The breasts are almost entirely fatty. There are no dominant masses or suspicious calcifications. Stable postoperative changes in the deep slightly lateral aspect of the left breast. A tissue clip marker is also seen in the upper slightly lateral aspect of the left breast as well from prior biopsies. Stable benign-appearing bilateral axillary lymph nodes. No other significant abnormalities are identified. There has been no significant change since the prior study. BI/SCREEN MAMM (CAD) W/MOSHE BILAT IMPRESSION: Stable bilateral screening mammogram. Yearly follow-up mammogram recommended. (A) ASSESSMENT CATEGORY: BIRADS Category 2: Benign. A letter regarding these results will be sent to the patient by the facility within 30 days. Approximately 10% of breast cancers are not detected by mammography. A normal mammogram should not delay biopsy of a clinically suspicious abnormality. [id number] Electronically Signed: Rosendo Meeks, at 12:46 EST , Service support ,
== END ==
PROVIDERS: Family Provider Student in an Organized Health Care Education/Training Program; PCP Student in an Organized Health Care Education/Training Program; Referring Provider Internal Medicine Medical Oncology; Visit Provider Internal Medicine Medical Oncology
DX: Z12.31 Encounter for screening mammogram for malignant neoplasm of breast (principal); Z85.3 Personal history of malignant neoplasm of breast
CPT/HCPCS: 77063; 77067

== ENCOUNTER → 2019-09-24 13:37 | Outpatient (CLI) | payer MEDICARE, SELFPAY ==
[2019-09-17 09:48] VITALS: BMI 33.6
--- NOTE | 2019-09-24 13:40 | CT_ITS ---
STUDY: CT CHEST WITHOUT CONTRAST REASON FOR EXAM: Female, 79 years old. COUGH, HISTORY OF BREAST CANCER, LUNG NODULE RADIATION DOSAGE (If Supplied By Facility): CTDIvol = ( 14.70 ) mGy, DLP = ( 594.95 ) mGycm TECHNIQUE: Transaxial imaging was performed without the administration of intravenous contrast material. Individualized dose optimization techniques were used for this CT. COMPARISON: 01/26/2017 FINDINGS: Mild bilateral apical scarring. No change in 1.2 cm noncalcified nodule in the anterior right upper lobe the lungs consistent with a noncalcified granuloma. This requires no further follow-up. No new noncalcified nodule or mass. Some subsegmental atelectasis or pneumonitis in the superior segment of the lower lobes bilaterally. There is no demonstrated pleural abnormality. Normal heart and pericardium. There are calcifications of the coronary arteries. Normal mediastinum. Normal hilar regions. Normal unenhanced pulmonary arteries. Normal aorta arch and descending thoracic aorta. Dextroscoliosis of the thoracolumbar spine with degenerative disc disease. There is no demonstrated abnormality of the visualized upper abdomen. CT/Chest without Contrast IMPRESSION: Some subsegmental atelectasis or pneumonitis within the superior segment of both lower lobes. Electronically Signed: Gab Arvizu MD at 14:41 EST Tel , Service support ,
== END ==
PROVIDERS: PCP Student in an Organized Health Care Education/Training Program; Referring Provider Nurse Practitioner Family; Visit Provider Nurse Practitioner Family
DX: R05 Cough (principal)
CPT/HCPCS: 71250

== ENCOUNTER → 2020-07-22 09:14 | Outpatient (CLI) | payer MEDICARE, SELFPAY ==
[2020-01-22 13:26] VITALS: BMI 34.4
--- NOTE | 2020-07-22 09:15 | BI_ITS ---
MAMMOGRAPHY - BILATERAL SCREENING REASON FOR EXAM: Female, 80 years old. Routine annual screening examination. PERTINENT HISTORY: Personal history of breast cancer. Prior left lumpectomy. Aunt with breast cancer. TECHNIQUE: Digital bilateral breast moshe (3D mammographic acquisition) in the CC and MLO projections. 2-D mediolateral oblique (MLO) and craniocaudad (CC) views of both breasts were obtained. CAD: Full Field Digital Mammography with Computer Added Detection was performed. COMPARISON: Comparison is made with prior study dated 07/20/2019 and 07/19/2018. FINDINGS: Breast Composition: The breasts are almost entirely fatty. There are no dominant masses or suspicious calcifications. Stable focal area of architectural distortion in the deep slightly lateral aspect of the left breast and compared with prior lumpectomy. A tissue clip marker is once again seen in the upper slightly lateral aspect of the left breast from prior biopsy. No other significant abnormalities are identified. There has been no significant change since the prior study. BI/SCREEN MAMM (CAD) W/MOSHE BILAT IMPRESSION: Stable bilateral screening mammogram. Yearly follow-up mammogram recommended. (A) ASSESSMENT CATEGORY: BIRADS Category 2: Benign. A letter regarding these results will be sent to the patient by the facility within 30 days. Approximately 10% of breast cancers are not detected by mammography. A normal mammogram should not delay biopsy of a clinically suspicious abnormality. [id number] Electronically Signed: Rosendo Meeks, at 11:24 EST , Service support ,
--- NOTE | 2020-07-22 09:18 | BD_ITS ---
STUDY: DUAL ENERGY X-RAY ABSORPTIOMETRY / DXA REASON FOR EXAM: Female, 80 years old. 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 COMPARISON: Comparison is made with prior study dated 07/19/2018. FINDINGS: Lumbar Spine (L1-L4): g/cm2 (1.224) / T-score (0.5) / Z-score (2.3) Findings are suggestive of normal bone density with a low fracture risk. Left Forearm: g/cm2 (0.760) / T-score (-1.3) / Z-score (1.2) The T-Scores on the most recent prior examination were: Lumbar Spine (L1-L4): There has been worsening of bone density since the previous examination. BD/Dexa Bone Density Study IMPRESSION: The patient is considered osteopenic as outlined below according to World Jourdan Organization (WHO) criteria with a low fracture risk. There has been worsening of bone density since the previous examination. Reference Information: The T-score is the number of standard deviations above or below the standard which is normal for young adults at their peak bone mineral density. The World Health Organization (WHO) interprets the T-scores as follows: Above -1 Normal bone density Between -1 and -2.5 Osteopenia Equal to / or below -2.5 Osteoporosis As a practical clinical guideline, osteopenia may be graded as follows: Mild -1 through -1.5 Moderate -1.6 through -2.0 Severe -2.1 through -2.4 The Z-score is the number of standard deviations above or below age-matched controls. A Z-score of less than -1.5 would be considered abnormal. References: 1. NIH Osteoporosis and Related Bone Diseases www osteo.org 2. International Society for Clinical Densitometry www iscd.org 3. National Osteoporosis Foundation www nof.org Electronically Signed: Rosendo Meeks, at 15:18 EST , Service support ,
== END ==
PROVIDERS: PCP Student in an Organized Health Care Education/Training Program; Referring Provider Internal Medicine Medical Oncology; Visit Provider Internal Medicine Medical Oncology
DX: Z12.31 Encounter for screening mammogram for malignant neoplasm of breast (principal); Z13.820 Encounter for screening for osteoporosis; M85.80 Other specified disorders of bone density and structure, unspecified site; M19.90 Unspecified osteoarthritis, unspecified site; Z79.811 Long term (current) use of aromatase inhibitors; Z78.0 Asymptomatic menopausal state; Z85.3 Personal history of malignant neoplasm of breast; Z80.3 Family history of malignant neoplasm of breast
CPT/HCPCS: 77063; 77067; 77080

== ENCOUNTER → 2021-07-23 10:21 | Outpatient (CLI) | payer MEDICARE, SELFPAY ==
--- NOTE | 2021-07-23 10:24 | BI_ITS ---
MAMMOGRAPHY - BILATERAL SCREENING REASON FOR EXAM: Female, 81 years old. Routine annual screening examination. PERTINENT HISTORY: Personal history of breast cancer. Prior left lumpectomy with radiation treatment. Grandmother with breast cancer. TECHNIQUE: Digital bilateral breast moshe (3D mammographic acquisition) in the CC and MLO projections. 2-D mediolateral oblique (MLO) and craniocaudad (CC) views of both breasts were obtained. CAD: Full Field Digital Mammography with Computer Added Detection was performed. COMPARISON: Comparison is made with prior examination dated 07/22/2020 and 07/20/2019. FINDINGS: Breast Composition: The breasts are almost entirely fatty. There are no dominant masses or suspicious calcifications. Once again, the patient is status post lumpectomy in the deep upper lateral aspect of the left breast with resultant postoperative architectural distortion. A tissue clip marker is also seen in the upper slightly lateral aspect of the left breast. There is thickening in the left periareolar region. No other significant abnormalities are identified. There has been no significant change since the prior study. BI/SCRN MAMM (CAD)W/MOSHE BILAT IMPRESSION: Stable bilateral screening mammogram. Yearly follow-up mammogram recommended. (A) ASSESSMENT CATEGORY: BIRADS Category 2: Benign. A letter regarding these results will be sent to the patient by the facility within 30 days. Approximately 10% of breast cancers are not detected by mammography. A normal mammogram should not delay biopsy of a clinically suspicious abnormality. [id number] Electronically Signed: Rosendo Meeks MD at 11:16 EST , Service support ,
== END ==
PROVIDERS: PCP Student in an Organized Health Care Education/Training Program; Visit Provider Internal Medicine Medical Oncology
DX: Z12.31 Encounter for screening mammogram for malignant neoplasm of breast (principal); Z85.3 Personal history of malignant neoplasm of breast; Z80.3 Family history of malignant neoplasm of breast
CPT/HCPCS: 77063; 77067

== ENCOUNTER 2022-06-02 07:51 | Day surgery (SDC) | payer MEDICARE, SELFPAY ==
--- NOTE | 2022-06-02 07:59 | HP.PCM_ITS ---
History and Physical Date of Admission: 06/02/22 Date of Service:? 05/10/22 MR#: [id number] Acct: [id number] Name:NANCIE HERNANDEZ Rep #: [id number] : 1940 ? ? Provider: Dr. Delmy Fowler MD Age/Sex:? 82/F ? ? [facility]: [facility] Status: Signed HPI: 82-year-old female presents for colonoscopy due to history of colon polyps. Patient also states she has been having some issues with leakage of stool. Patient's last colonoscopy was 08/2017 due to a positive Cologuard. At that time patient did have 3 tubular adenomas. Patient has bowel movements about every 2 days denies any blood. Intake Vital Signs ? 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: No Is patient in pain?: No Allergies naproxen Allergy (Severe, Verified 05/10/22 13:22) Hivesacetaminophen [From Vicodin] Adverse Reaction (Verified 05/10/22 13:22) Nauseahydrocodone [From Vicodin] Adverse Reaction (Verified 05/10/22 13:22) Nausea Medications acetaminophen 500 mg tablet 500 mg PO DAILY PRN PRN Pain 11/25/14 [History Confirmed 07/28/21] bisoprolol fumarate 5 mg tablet 5 mg PO DAILY 11/25/14 [History Confirmed 07/28/21] cholecalciferol (vitamin D3) 25 mcg (1,000 unit) tablet 2,000 unit PO DAILY 11/25/14 [History Confirmed 07/28/21] pyridoxine (vitamin B6) 100 mg tablet 100 mg PO DAILY 03/12/15 [History Conf irmed 07/28/21] simvastatin 20 mg tablet 20 mg PO DAILY 03/24/15 [History Confirmed 07/28/21] calcium carbonate 600 mg-vitamin D3 5 mcg (200 unit) tablet 1 ea PO DAILY 11/03/16 [History Confirmed 07/28/21] tolterodine 2 mg tablet 2 mg PO BID 11/03/16 [History Confirmed 07/28/21] losartan 100 mg-hydrochlorothiazide 12.5 mg tablet 1 tab PO DAILY 08/30/17 [History Confirmed 07/28/21] sodium,potassium,mag sulfates 17.5 gram-3.13 gram-1.6 gram oral soln (Suprep Bowel Prep Kit) 177 ml PO QDAY #354 mL 05/10/22 [Rx] PFSH Medical History? Basal cell carcinoma BILATERAL LASER EYE SURGERY Cataract (lens) fragments in eye following cataract surgery, bilateral colonoscopy excision of left thigh Hearing deficit History of skin cancer HX: breast cancer Kidney disease Stage 3 chronic kidney disease Surgical History? H/O arthroscopy of shoulder History of dilation and curettage History of hip replacement History of knee replacement History of lumpectomy of left breast History of tympanoplasty of left ear Hx of breast biopsy Family History? Father Heart diseaseMother Alzheimer disease Social History? Smoking Status:? Never smoker Electronic Cigarette Use:? not used ROS General General: No weakness Gastro Gastrointestinal: No abdominal pain, No nausea or vomiting, No diarrhea, No constipation, No blood in stool, No acid reflux, Yes hemorrhoids, No ulcers, No gallbladder problem and No black,tarry stools Adam Hematologic: No blood thinners, No blood disorders, No bleeding, No anemia and No blood clots Neuro Neurologic: No system reviewed and no additional complaints, except as documented, No as per HPI, No abnormal gait, No abnormal hearing, No abnormal movements, No abnormal speech, No behavioral changes, No burning sensations, No confusion, No convulsions, No disequilibrium, No dizziness, No localized weakness, No frequent falls, No headache(s), No lack of coordination, No loss of vision, No memory loss, No numbness, No other visual disturbances, No radicular pain, No restless legs, No sensory deficit, No syncope, No tingling, No tremor(s), No weakness and No other Exam Const General: cooperative, healthy appearing and no acute distress [facility] Head: normal to inspection Resp Effort & Inspection: normal respiratory effort Cardio Rate: regular rate GI Inspection: non-distended Palpation: soft, no guarding, no hernias and nontender Rectal Exam: abnormal sphincter tone (weak), hemorrhoids (small internal hemorrhoids), No mass and No tenderness Skin General: no rashes or lesions noted Neuro General: patient oriented x3 Extrem General: no clubbing, cyanosis or edema Psych Affect: normal affect Assessment and Plan Assessment and Plan (1) Hx of colonic polyps: ?Status:?Acute ? ? ? Orders: Orders Colonoscopy Today ? Medications: New sodium,potassium,mag sulfates 17.5-3.13-1.6 gram (Suprep Bowel Prep Kit) ?? as directed 177 mL? PO QDAY 354 mL 0RF ? ? Plan Discussed with patient that as far as her fecal incontinence, I don't? feel any large internal hemorrhoids that could be causing a little leakage, patient does have a weak sphincter tone on exam. I have discussed the above with the patient. I have offered the patient colonoscopy for evaluation. I have explained the risks/benefits of the procedure and described the procedure.? I have discussed the risks with the patient, including but not limited to:? infection, bleeding, perforation of the GI tract requiring emerg ency surgery, inability to complete the procedure, injury to any internal organs, complications of anesthesia, etc. - the patient understands and agrees to proceed. I have answered all the patient's questions to the patient's satisfaction and the patient has no further questions. The patient has been given instructions for the colon cleansing preparation.? Suprep or MiraLAX/Gatorade 1 day of clears.? If Suprep too expensive. Delmy Fowler M.D. Pager: [phone] [facility] [address] [place] [address], [address] [place] [address] Office: [phone] Coding Level of Care Code Off vis,new,level 3 Diagnoses Hx of colonic polyps? Z86.010 05/10/22 1326 <Electronically signed by Delmy Fowler MD> Date Delmy Fowler MD
[2022-06-02] MEDS: Lactated Ringers 1,000 ML 15 ML IV (08:00)
[2022-06-02 08:18] VITALS: BP 157/67; PULSE 66; RESP 16; TEMP 36.2; O2SAT 96; BMI 33.0
--- NOTE | 2022-06-02 09:00 | COLBX_PTH ---
PATIENT: NANCIE SALAS LOC: EN U#:[id number] AGE/SX: 82/F ROOM: RE06/02/[address]: Dr. Delmy Fowler MD : 1940 BED: DIS: 06/02/2022 SPEC #: [id number] RECD: 06/02/22 10:24 STATUS: VANIA REMargaret #: [id number] WEI: 06/02/22 09:[address]: Delmy Fowler DEPT: SURGICAL PATHOLOGY RECD BY: Abril Giron ENTERED: 06/02/22 11:37 SP TYPE: COLON BX OTHR DR: Dr. Dejan Reyes DO Tissues: A - COLON BIOPSY B - Cecum, NOS C - Descending colon Procedures: Surgery Specimen Level IV HEADER OPERATION: Colonoscopy (MAC) PRE-OP DIAGNOSIS: Colon screening, history of polyps TISSUE SUBMITTED: A - Appendiceal orifice biopsy, B - Cecum polyp biopsy x2, C - Descending colon biopsy MICROSCOPIC DIAGNOSIS A. Appendiceal orifice, biopsy: Fragments of tubular adenoma. B. Cecal polyp, biopsy: Fragments of tubular adenoma. C. Descending colon, biopsy: Tubular adenoma. AM:valeria 06/03/2022 MICROSCOPIC DESCRIPTION Slides are reviewed. GROSS DESCRIPTION A - Received in fixative is one container labeled with the patient's name and designated appendiceal orifice biopsy. The specimen consists of two irregular fragments of light adame soft tissue that in aggregate measure 0.6 x 0.3 x 0.1 cm. The specimen is totally submitted in one cassette. B - Received in fixative is one container labeled with the patient's name and designated cecum biopsy. The specimen consists of multiple irregular fragments of light adame soft tissue that in aggregate measure 1.2 x 0.5 x 0.1 cm. The specimen is totally submitted in one cassette. C - Received in fixative is one container labeled with the patient's name and designated descending colon biopsy. The specimen consists of one irregular fragment of light adame soft tissue that measures 0.3 x 0.3 x 0.1 cm. The specimen is totally submitted in one cassette. / AM:valeria 06/02/2022 TC:5 CPT: 92067 x3
[2022-06-02 09:25] VITALS: BP 155/69; BP 157/67; PULSE 69; RESP 16; TEMP 37; O2SAT 99
[2022-06-02 09:30] VITALS: BP 144/76; BP 157/67; PULSE 68; RESP 16; O2SAT 98
--- NOTE | 2022-06-02 09:31 | OP.CCLET_ITS ---
06/02/2022 Dejan Reyes Do Re : Colonoscopy procedure for Amber Goldstein Dear Eric This procedure was performed on Thursday, June 02, 2022. My impressions and recommendations are as follows: Impressions : - Hemorrhoids found on perianal exam. - Non-bleeding internal hemorrhoids. - Diverticulosis in the sigmoid colon. - Four 2 to 5 mm polyps in the descending colon, in the cecum and at the appendiceal orifice, removed with a cold biopsy forceps. Resected and retrieved. - The examination was otherwise normal. Recommendations : - Discharge patient to home. - High fiber diet. - Continue present medications. - Await pathology results. - Repeat colonoscopy in 3 - 5 years for surveillance based on pathology results. My findings are described in the full procedure note, which is enclosed. If I can be of further assistance, please feel free to contact me at Doctor phone number(s): , Work: . Sincerely, MD Delmy Valdez MD 06/02/2022 9:31:05 AM This report has been signed electronically.
--- NOTE | 2022-06-02 09:31 | OP.COLON_ITS ---
Patient Name: Amber Goldstein Procedure Date: 06/02/2022 8:40 AM Date of : 1940 Age: 82 Procedure: Colonoscopy Indications: Surveillance: Personal history of adenomatous polyps on last colonoscopy 5 years ago Providers: Delmy Fowler MD Medicines: Monitored Anesthesia Care Patient Profile: This is an 82 year old female. Last Colonoscopy: August 2017. Complications: No immediate complications. Procedure: Pre-Anesthesia Assessment: - Prior to the procedure, a History and Physical was performed, and patient medications and allergies were reviewed. The patient's tolerance of previous anesthesia was also reviewed. The risks and benefits of the procedure and the sedation options and risks were discussed with the patient. All questions were answered, and informed consent was obtained. Prior Anticoagulants: The patient has taken no previous anticoagulant or antiplatelet agents. ASA Grade Assessment: Per anesthesia. After reviewing the risks and benefits, the patient was deemed in satisfactory condition to undergo the procedure. After I obtained informed consent, the scope was passed under direct vision. Throughout the procedure, the patient's blood pressure, pulse, and oxygen saturations were monitored continuously. The Colonoscope was introduced through the anus and advanced to the cecum, identified by the appendiceal orifice, ileocecal valve and palpation. The colonoscopy was performed without difficulty. The patient tolerated the procedure well. The quality of the bowel preparation was good. Scope In: 8:51:27 AM Scope Withdrawal Time 0 hours 17 minutes 31 seconds Scope Out: 9:19:04 AM Total Procedure Duration Time 0 hours 27 minutes 37 seconds Findings: Hemorrhoids were found on perianal exam. Non-bleeding internal hemorrhoids were found. The hemorrhoids were Grade I (internal hemorrhoids that do not prolapse). Multiple small-mouthed diverticula were found in the sigmoid colon. Four sessile polyps were found in the descending colon, cecum and appendiceal orifice. The polyps were 2 to 5 mm in size. These polyps were removed with a cold biopsy forceps. Resection and retrieval were complete. The exam was otherwise without abnormality. Impression: - Hemorrhoids found on perianal exam. - Non-bleeding internal hemorrhoids. - Diverticulosis in the sigmoid colon. - Four 2 to 5 mm polyps in the descending colon, in the cecum and at the appendiceal orifice, removed with a cold biopsy forceps. Resected and retrieved. - The examination was otherwise normal. Recommendation: - Discharge patient to home. - High fiber diet. - Continue present medications. - Await pathology results. - Repeat colonoscopy in 3 - 5 years for surveillance based on pathology results. Procedure Code(s): --- Professional --- 00277, PT, Colonoscopy, flexible; with biopsy, single or multiple Diagnosis Code(s): --- Professional --- Z86.010, Personal history of colonic polyps K64.0, First degree hemorrhoids D12.4, Benign neoplasm of descending colon D12.0, Benign neoplasm of cecum D12.1, Benign neoplasm of appendix K57.30, Diverticulosis of large intestine without perforation or abscess without bleeding CPT copyright 2017 [employer]. All rights reserved. The codes documented in this report are preliminary and upon coder operator review may be revised to meet current compliance requirements. MD Delmy Valdez MD 06/02/2022 9:31:05 AM This report has been signed electronically. Number of Addenda: 0 Note Initiated On: 06/02/2022 8:40 AM
[2022-06-02 09:35] VITALS: BP 145/66; BP 157/67; PULSE 65; RESP 16; O2SAT 98
[2022-06-02 09:40] VITALS: BP 151/69; BP 157/67; PULSE 66; RESP 16; TEMP 36.6; O2SAT 98
[2022-06-02 09:51] VITALS: BP 157/67
== END 2022-06-02 10:03 | disposition home or self-care (01) ==
LOC: EN 07:53 → AC 07:54
PROVIDERS: PCP Student in an Organized Health Care Education/Training Program; Referring Provider Student in an Organized Health Care Education/Training Program; Visit Provider Surgery
PROC: 0DJD8ZZ Inspection of Lower Intestinal Tract, Via Natural or Artificial Opening Endoscopic (ICD-10-PCS; CPT 45378; principal; 2022-06-02 08:55)
DX: Z12.11 Encounter for screening for malignant neoplasm of colon (principal); N18.30 Chronic kidney disease, stage 3 unspecified; D12.4 Benign neoplasm of descending colon; D12.0 Benign neoplasm of cecum; K57.30 Diverticulosis of large intestine without perforation or abscess without bleeding; K64.0 First degree hemorrhoids; Z86.010 Personal history of colon polyps; D12.1 Benign neoplasm of appendix
CPT/HCPCS: 45380; 88305; J7120; J2405

== ENCOUNTER → 2022-07-27 | Outpatient (CLI) | payer MEDICARE, SELFPAY ==
--- NOTE | 2022-07-27 09:46 | BI_ITS ---
MAMMOGRAPHY - BILATERAL SCREENING REASON FOR EXAM: Female, 82 years old. Routine annual screening examination. PERTINENT HISTORY: Personal history of breast cancer. The patient is status post left lumpectomy with chemotherapy and radiation therapy. Grandmother with breast cancer. TECHNIQUE: Digital bilateral breast moshe (3D mammographic acquisition) in the CC and MLO projections. 2-D mediolateral oblique (MLO) and craniocaudad (CC) views of both breasts were obtained. CAD: Full Field Digital Mammography with Computer Added Detection was performed. COMPARISON: Comparison is made with prior examination dated 07/23/2021 and 07/22/2020. FINDINGS: Breast Composition: The breasts are almost entirely fatty. There are no dominant masses or suspicious calcifications. Once again, the patient is status post lumpectomy in the deep upper lateral aspect of the left breast. Resultant postoperative scarring and architectural distortion. Dystrophic calcification is seen at the operative site. A tissue clip marker is also seen in the upper slightly lateral aspect of the left breast. Stable thickening of the left periareolar region. No other significant abnormalities are identified. There has been no significant change since the prior study. BI/SCRN MAMM (CAD)W/MOSHE BILAT IMPRESSION: Stable bilateral screening mammogram. Yearly follow-up mammogram recommended. (A) ASSESSMENT CATEGORY: BIRADS Category 2: Benign. A letter regarding these results will be sent to the patient by the facility within 30 days. Approximately 10% of breast cancers are not detected by mammography. A normal mammogram should not delay biopsy of a clinically suspicious abnormality. [id number] Electronically Signed: Rosendo Meeks MD at 12:32 EST ,
--- NOTE | 2022-07-27 09:55 | BD_ITS ---
STUDY: DUAL ENERGY X-RAY ABSORPTIOMETRY / DXA REASON FOR EXAM: Female, 82 years old. Osteoporosis TECHNIQUE: Bone Mineral Density (BMD) measurements of both forearms were obtained. COMPARISON: Comparison is made with prior study dated 07/22/2020. FINDINGS: Right Forearm: g/cm2 (0.530) / T-score (-0.9) / Z-score (2.1) Left Forearm: g/cm2 (0.516) / T-score (-1.2) / Z-score (1.9) BD/Dexa Bone Density/Append Skel IMPRESSION: The patient is considered osteopenic as outlined below according to World Jourdan Organization (WHO) criteria with a low fracture risk. Reference Information: The T-score is the number of standard deviations above or below the standard which is normal for young adults at their peak bone mineral density. The World Health Organization (WHO) interprets the T-scores as follows: Above -1 Normal bone density Between -1 and -2.5 Osteopenia Equal to / or below -2.5 Osteoporosis As a practical clinical guideline, osteopenia may be graded as follows: Mild -1 through -1.5 Moderate -1.6 through -2.0 Severe -2.1 through -2.4 The Z-score is the number of standard deviations above or below age-matched controls. A Z-score of less than -1.5 would be considered abnormal. References: 1. NIH Osteoporosis and Related Bone Diseases www osteo.org 2. International Society for Clinical Densitometry www iscd.org 3. National Osteoporosis Foundation www nof.org Electronically Signed: Rosendo Meeks MD at 9:36 EST ,
== END | disposition home or self-care (01) ==
LOC: OPBI 09:44
PROVIDERS: PCP Student in an Organized Health Care Education/Training Program; Referring Provider Internal Medicine Medical Oncology; Visit Provider Internal Medicine Medical Oncology
DX: Z12.31 Encounter for screening mammogram for malignant neoplasm of breast (principal); M81.0 Age-related osteoporosis without current pathological fracture; M85.89 Other specified disorders of bone density and structure, multiple sites; Z80.3 Family history of malignant neoplasm of breast; Z92.21 Personal history of antineoplastic chemotherapy; Z92.3 Personal history of irradiation; Z85.3 Personal history of malignant neoplasm of breast
CPT/HCPCS: 77063; 77067; 77080; 77081

== ENCOUNTER → 2023-07-28 | Outpatient (CLI) | payer MEDICARE, SELFPAY ==
--- NOTE | 2023-07-28 12:38 | BI_ITS ---
MAMMOGRAPHY - BILATERAL SCREENING REASON FOR EXAM: Female, 83 years old. Routine annual screening examination. PERTINENT HISTORY: Personal history of breast cancer. Prior left lumpectomy with chemotherapy and radiation therapy. Prior left stereotactic breast biopsy. Grandmother with breast cancer. TECHNIQUE: Digital bilateral breast moshe (3D mammographic acquisition) in the CC and MLO projections. 2-D mediolateral oblique (MLO) and craniocaudad (CC) views of both breasts were obtained. CAD: Full Field Digital Mammography with Computer Added Detection was performed. COMPARISON: Comparison is made with prior study July 27, 2022 and July 23, 2021. FINDINGS: Breast Composition: The breasts are almost entirely fatty. There are no dominant masses or suspicious calcifications. Once again, the patient is status post lumpectomy in the deep upper lateral aspect of the left breast with resultant postoperative scarring and dystrophic calcification at the operative site. A tissue clip marker is also seen in the upper slightly lateral aspect of the left breast. No other significant abnormalities are identified. There has been no significant change since the prior study. BI/SCRN MAMM (CAD)W/MOSHE BILAT IMPRESSION: Stable bilateral screening mammogram. Yearly follow-up mammogram recommended. (A) ASSESSMENT CATEGORY: BIRADS Category 2: Benign. A letter regarding these results will be sent to the patient by the facility within 30 days. Approximately 10% of breast cancers are not detected by mammography. A normal mammogram should not delay biopsy of a clinically suspicious abnormality. [id number] Electronically Signed: Rosendo Meeks MD at 13:43 EST ,
== END | disposition home or self-care (01) ==
LOC: OPBI 12:37
PROVIDERS: PCP Student in an Organized Health Care Education/Training Program; Referring Provider Internal Medicine Medical Oncology; Visit Provider Internal Medicine Medical Oncology
DX: Z12.31 Encounter for screening mammogram for malignant neoplasm of breast (principal); Z85.3 Personal history of malignant neoplasm of breast
CPT/HCPCS: 77063; 77067

== ENCOUNTER → 2024-08-07 | Outpatient (CLI) | payer MEDICARE, SELFPAY ==
--- NOTE | 2024-08-07 09:51 | BI_ITS ---
MAMMOGRAPHY - BILATERAL SCREENING 3-D TOMOSYNTHESIS REASON FOR EXAM: Female, 84 years old. Z12.31 - Encounter for screening mammogram for malignant neopl... PERTINENT HISTORY: No significant family history. TECHNIQUE: 2-D mammograms and 3-D Tomosynthesis of the breast (s) were performed. CAD was performed. COMPARISON: 07/28/2023 FINDINGS: The breast composition is composed of scattered fibroglandular density. Scattered benign calcifications are seen. No dense spiculated masses or suspicious microcalcifications are identified. No architectural distortion is identified. There is no skin thickening or retraction. There has been no significant change since the prior study. BI/SCRN MAMM (CAD)W/MOSHE BILAT IMPRESSION: No mammographic signs of malignancy. Routine yearly mammograms recommended. ASSESSMENT CATEGORY: BIRADS Category 1: Negative. A letter regarding these results will be sent to the patient by the facility within 30 days. FOLLOW UP RECOMMENDATION: Yearly follow up mammogram recommended. (A) Approximately 10% of breast cancers are not detected by mammography. A normal mammogram should not delay biopsy of a clinically suspicious abnormality. Electronically Signed: Gab Arvizu MD at 19:32 EST ,
--- NOTE | 2024-08-07 09:57 | BD_ITS ---
STUDY: DUAL ENERGY X-RAY ABSORPTIOMETRY / DXA REASON FOR EXAM: Female, 84 years old. OSTEOPENIA TECHNIQUE: Bone Mineral Density (BMD) measurements of lumbar spine and left forearm were obtained. COMPARISON: 07/22/2020 FINDINGS: Lumbar Spine (L1-L4): g/cm2 (1.199) / T-score (1.3) / Z-score (4.1) Findings are suggestive of normal bone density with a low fracture risk. Left Forearm: g/cm2 (0.554) / T-score (-2.3) / Z-score (1.1) BD/Dexa Bone Density Study IMPRESSION: The patient is considered osteopenic as outlined below according to World [employer] Organization (WHO) criteria with a moderate fracture risk. There has been no change of bone density since the previous examination. Reference Information: The T-score is the number of standard deviations above or below the standard which is normal for young adults at their peak bone mineral density. The World Health Organization (WHO) interprets the T-scores as follows: Above -1 Normal bone density Between -1 and -2.5 Osteopenia Equal to / or below -2.5 Osteoporosis As a practical clinical guideline, osteopenia may be graded as follows: Mild -1 through -1.5 Moderate -1.6 through -2.0 Severe -2.1 through -2.4 The Z-score is the number of standard deviations above or below age-matched controls. A Z-score of less than -1.5 would be considered abnormal. References: 1. NIH Osteoporosis and Related Bone Diseases www osteo.org 2. International Society for Clinical Densitometry www iscd.org 3. National Osteoporosis Foundation www nof.org Electronically Signed: Gab Arvizu MD at 23:43 EST ,
== END | disposition home or self-care (01) ==
LOC: OPBD 09:49
PROVIDERS: PCP Student in an Organized Health Care Education/Training Program; Referring Provider Internal Medicine Medical Oncology; Visit Provider Internal Medicine Medical Oncology
DX: M85.88 Other specified disorders of bone density and structure, other site (principal); Z78.0 Asymptomatic menopausal state; Z12.31 Encounter for screening mammogram for malignant neoplasm of breast
CPT/HCPCS: 77063; 77067; 77080